=== PATIENT | male | born 1945 | race Caucasian/White ===

== ENCOUNTER 2017-02-19 19:40 | Observation (INO) | payer OTHER ==
--- NOTE | ~2017-02-19 | HP ---
History And Physical [address] [place]. [address] NAME: OMAR MAGAÑA : 41 STATUS : DIS Elsy PAT#: [id number] AGE: 71 ADM/REG DATE : 02/19/17 MR#: [id number] REPORT SERV DATE: 02/21/17 DICTATED BY: OMAR THOMAS DATE: 02/21/17 REPORT STATUS : Draft TRANSCRIBED BY: MODL DATE: 02/21/17 DATE OF ADMISSION: 02/19/2017 CHIEF COMPLAINT: Left hip pain. HISTORY: A 71-year-old male with left hip and groin pain of unclear etiology. He denies any particular history of injury. He is a very active gentleman, works for [employer]. ALLERGIES: NONE. MEDICATIONS: See chart. PAST MEDICAL HISTORY: Hearing loss, hypercholesterolemia, hypertension, coronary artery disease, COPD, arthritis. PAST SURGICAL HISTORY: Fractured skull surgery in 1963, diskectomy in 2000, diskectomy in 2003, back fusion in 2007. SOCIAL HISTORY: Half a pack a day cigarettes for fifty years. No alcohol or illicit drug use, infrequently drinking alcohol and is . Works for [employer] six hours at a time. FAMILY HISTORY: No known anesthetic complications. REVIEW OF SYSTEMS: No recent illnesses. Nothing other than what is noted above. No acute problems. Apparently admitted for "shock", but his systolic pressure was reported in the 80s here. PHYSICAL EXAMINATION: GENERAL: He is alert and oriented x3, in no apparent distress. He is able to stand up. HEENT: Atraumatic, normocephalic. NECK: Supple. EXTREMITIES: Both upper extremities, left lower extremity without acute trauma. Difficult to localize symptoms, he is able to walk with minimal discomfort. NEUROVASCULAR: Intact. Review of CT scan and x-rays reveals an anterior greater trochanteric fracture. ASSESSMENT: Anterior greater trochanteric fracture. I suspect it is an avulsion-type fracture. PLAN: I have discussed weightbearing as tolerated. Activity as tolerated. Protected weightbearing with a crutch or cane or a walker as needed. We discussed activity at length. We will follow up as an outpatient. History And Physical [address] [place]. [address] NAME: OMAR MAGAÑA : 41 STATUS : DIS Elsy PAT#: [id number] AGE: 71 ADM/REG DATE : 02/19/17 MR#: [id number] REPORT SERV DATE: 02/21/17 DICTATED BY: OMAR THOMAS DATE: 02/21/17 REPORT STATUS : Draft TRANSCRIBED BY: NIKO DATE: 02/21/17 WTB/NIKO Salome Thomas M.D. / [id number] CC: MD Ben Corea
--- NOTE | ~2017-02-19 | DS ---
Discharge Summary [facility] [address] [place]. [address] NAME: OMAR MAGAÑA : 41 STATUS : DIS Elsy PAT#: [id number] AGE: 71 ADM/REG DATE : 02/19/17 MR#: [id number] REPORT SERV DATE: 02/22/17 DICTATED BY: DMITRIY BURT DATE: 02/21/17 REPORT STATUS : Draft TRANSCRIBED BY: MODL DATE: 02/21/17 ADMISSION DATE: 02/19/2017 DISCHARGE DATE: 02/21/2017 DISCHARGE DIAGNOSES: 1. Left lower extremity pain due to small nondisplaced fracture, anterolateral left greater trochanter. 2. Small nondisplaced fracture, anterolateral left greater trochanter. 3. Hypotension, resolved. 4. Acute kidney injury, resolved. 5. Chronic obstructive pulmonary disease without exacerbation, stable. IMAGIN. Chest x-ray, 02/19/2017, impression: No acute process, no changes. 2. CT abdomen and pelvis on 02/20/2017, impression very small nondisplaced fracture of the anterolateral aspect of the left greater trochanter. Degenerative joint changes and hip, bilateral. LABORATORY DATA: WBC is 7.3, hemoglobin 12.9, hematocrit 38.4, platelet count 154. Sodium is 139, potassium is 4.4, chloride is 108, CO2 is 26, BUN is 23, creatinine is 1.22, glucose is 102, calcium is 8.3, magnesium is 2.1, total protein 6.7, albumin 3.4, globulin is 3.3, total bilirubin 0.4, alkaline phosphatase is 133, ALT is 16, AST is 14, BNP is 67.6, troponin is less than 0.02, and TSH is 0.632. COURSE IN HOSPITAL STAY: Please refer to history and physical dictated by Dr. Alberto Rendon on 02/20/2017 for complete admission details. This patient is a 71-year-old male, who presented to [facility] emergency room with complaints of low blood pressure and severe left leg and hip pain. The patient was evaluated. Imaging was obtained, which is noted above. Ortho was consulted regarding nondisplaced fracture of the anterior left toe greater trochanter. Per Dr. Thomas, the patient is nonsurgical at this time. Weightbearing as tolerated. Home health care and physical therapy have been ordered for the patient to follow up outpatient with Dr. Thomas in his primary care. Oxycodone 5/325 is controlling his pain. He will be provided a prescription for pain medication. The patient was noted with hypotension upon admission. Blood pressure medications were held. At this time, blood pressure has remained stable. We will continue to monitor home review with primary care. The patient was noted with BUN of 28 and creatinine of 1.66 upon admission. At this time, BUN is 23 and creatinine is 1.22. This has resolved. This patient is being discharged home in hemodynamically stable condition. We will have home health care and physical therapy evaluating. A walker will be provided. Weightbearing is as tolerated. We will follow up with Dr. Thomas in one to two weeks as well as primary care in 7-10 days. Prescription for oxycodone was provided. The patient will able to return to work on 03/17/2017, unless otherwise advised per primary care. Discharge Summary [address] [address] NAME: OMAR MAGAÑA : 41 STATUS : DIS Elsy PAT#: [id number] AGE: 71 ADM/REG DATE : 02/19/17 MR#: [id number] REPORT SERV DATE: 02/22/17 DICTATED BY: DMITRIY BURT DATE: 02/21/17 REPORT STATUS : Draft TRANSCRIBED BY: NIKO DATE: 02/21/17 DISCHARGE MEDICATIONS: 1. Aspirin 81 mg one p.o. every morning. 2. Plavix 75 mg one p.o. every morning. 3. Neurontin 400 mg one p.o. three times daily. 4. Fish oil 1000 mg p.o. every morning. 5. Zocor 20 mg one p.o. at bedtime. 6. Norvasc 10 mg one p.o. every morning. The patient to monitor. 7. Flexeril 5 mg one p.o. three times daily p.r.n. for . 8. Ranexa 500 mg p.o. twice daily. 9. Uroxatral 10 mg one p.o. at bedtime. 10.Lisinopril 20 mg one p.o. every morning, currently holding. 11.Magnesium 500 mg one p.o. every morning. 12.Zantac 150 mg one p.o. twice daily. 13.Ultram 50 mg one p.o. every six hours, hold for sedation. 14.Trazodone 50 mg one p.o. at bedtime. 15.Requip 1 mg one p.o. at bedtime p.r.n. for sleep-time restless legs. 16.Nitroglycerin 0.4 mg sublingual p.r.n. for chest pain. 17.Oxycodone 5/325 one p.o. every six hours p.r.n. for pain. This discharge took greater than 30 minutes. DICTATED BY: Dmitriy Burt NP [facility]/MODL Dmitriy Burt NP / [id number] CC: MD ALYSA Corea RAMI
--- NOTE | ~2017-02-19 | HP ---
History And Physical [facility] [address] [place]. [address] NAME: OMAR MAGAÑA : 41 STATUS : ADM Elsy PAT#: [id number] AGE: 71 ADM/REG DATE : 02/19/17 MR#: [id number] REPORT SERV DATE: 02/20/17 DICTATED BY: ANDREW MOORE DATE: 02/20/17 REPORT STATUS : Draft TRANSCRIBED BY: MODL DATE: 02/20/17 DATE OF ADMISSION: 02/19/2017 CHIEF COMPLAINT: A 71-year-old male presenting with low blood pressure and severe left leg and hip pain. HISTORY OF PRESENT ILLNESS: The patient's history was obtained through careful interview with the patient, coupled with review of [facility] medical records. For about two weeks, the patient has a primary complaint of left leg pain. This is new onset, mostly in his groin and then radiates down just below the knee. It is about 8/10 in severity, exacerbated by weightbearing and is constant. It has gotten to the point he says in the last two or three days where he cannot even walk. Over the last two weeks, he has lost about 10 pounds and has just felt generally debilitated. He describes a poor appetite, but no nausea, vomiting, and he has also been checking his blood pressures, and they have been persistently and consistently low over these last two weeks, but despite this, he denies any lightheadedness. No nausea, vomiting. No diarrhea. No shortness of breath. No chest pain. No rash. No change in bowel or bladder habit. REVIEW OF SYSTEMS: Otherwise, a 14-point review of systems was obtained and was negative. PAST MEDICAL HISTORY: 1. Coronary artery disease, status post stent placement, followed by [facility]. 2. Gastroesophageal reflux disorder, seen by Dr. Polanco. 3. Hypertension. 4. Restless legs syndrome. 5. COPD. PAST SURGICAL HISTORY: 1. Back surgery x3. 2. Neck surgery with a benign mass in the . 3. Right shoulder surgery. 4. Skull fracture with apparent repair in the . ALLERGIES: NO KNOWN DRUG ALLERGIES. SOCIAL HISTORY: Smokes about two packs per day. Rare alcohol use. He is a of the [employer]. Retired from [employer]. He is . Lives in [place], [place]. 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 He has children, who live locally. History And Physical [address] [address] NAME: OMAR MAGAÑA : 41 STATUS : ADM Elsy PAT#: [id number] AGE: 71 ADM/REG DATE : 02/19/17 MR#: [id number] REPORT SERV DATE: 02/20/17 DICTATED BY: ANDREW MOORE DATE: 02/20/17 REPORT STATUS : Draft TRANSCRIBED BY: NIKO DATE: 02/20/17 FAMILY HISTORY: Brother with coronary artery disease. A strong family history of COPD. CURRENT MEDICATIONS: Include metoprolol 25 mg p.o. b.i.d., nitroglycerin, fish oil, Zantac, Ranexa 500 mg p.o. b.i.d., Requip 1 mg at bedtime, Zocor 20 mg p.o. daily, tramadol p.r.n., trazodone 50 mg at bedtime, magnesium supplement, Alfuzosin 10 mg p.o. at bedtime, Norvasc 10 mg p.o. daily, aspirin 81 mg p.o. daily, Plavix 75 mg p.o. daily, Flexeril 5 mg p.o. t.i.d., Neurontin 400 mg p.o. t.i.d., isosorbide mononitrate 60 mg p.o. daily, and lisinopril 20 mg p.o. daily. PHYSICAL EXAMINATION: VITAL SIGNS: Temperature 98.7, pulse 87, blood pressure 84/46, respiratory rate 16, and O2 saturation 93% on room air. GENERAL: A pleasant, cooperative male, in minimal distress secondary to left leg and hip pain. HEENT: Pupils equal, round, and reactive to light. No conjunctival pallor. No scleral icterus. Nares are patent. Oropharynx is clear of obstruction. The patient has dry mucous membranes. NECK: Trachea midline. No thyromegaly. LYMPH: No cervical lymphadenopathy. No supraclavicular lymphadenopathy. RESPIRATORY: Clear to auscultation at bases. No wheezes, rales, or rhonchi. Normal respiratory effort. CARDIOVASCULAR: Regular rate and rhythm. No murmurs, rubs, or gallops. No extremity edema is appreciated. ABDOMEN: Soft, nontender, nondistended. Normal bowel sounds auscultated throughout. No hepatosplenomegaly. DERMATOLOGICAL: Warm and dry extremities. No pallor, no cyanosis. PSYCHIATRIC: Normal affect. Good mood. Alert and oriented x3. LABORATORY DATA: White blood cell count 6.8, hemoglobin 13, hematocrit 38, platelets 154. Sodium 139, potassium 3.9, chloride 105, bicarb 26, BUN 28, creatinine 1.66 from baseline creatinine of 0.9, glucose 97. Brain natriuretic peptide 23, troponin negative. INR 1.1. Liver enzymes within normal limits. STUDIES: 1. Chest x-ray by my own evaluation shows chronic COPD changes, but no acute abnormality. 2. EKG by my own evaluation shows sinus rhythm. ASSESSMENT AND PLAN: 1. Hypertension. Placed on IV fluids. Hold the patient's home blood pressure medications and monitor. 2. Acute kidney injury. Placed on IV fluids and monitor. 3. Left groin pain radiating down the left leg. Check a CT scan of the hip and pelvis on the morning of February 20. 4. Chronic obstructive pulmonary disease. Counseled tobacco abstinence. Placed on DuoNeb nebulizers. History And Physical [address] [address] NAME: OMAR MAGAÑA : 41 STATUS : ADM Elsy PAT#: [id number] AGE: 71 ADM/REG DATE : 02/19/17 MR#: [id number] REPORT SERV DATE: 02/20/17 DICTATED BY: ANDREW MOORE DATE: 02/20/17 REPORT STATUS : Draft TRANSCRIBED BY: NIKO DATE: 02/20/17 [facility]/NIKO Andrew Moore M.D. / [id number] CC: Rey Hernandez M.D.
[2017-02-19 19:32] LABS: BASOPHILS 0.3 %; BASOPHILS ABSOLUTE 0.02 10/3/uL (0.0-0.16); EOSINOPHILS 2.8 %; EOSINOPHILS ABSOLUTE 0.19 10/3/uL (0.0-0.53); ER CBC TAT 0 Hrs 16 Mins; HEMOGLOBIN 12.7 g/dL (13.6-17.8); IMMATURE GRANULOCYTES 0.4 %; IMMATURE GRANULOCYTES ABSOLUTE 0.03 10/3/uL (0.0-0.11); LYMPHOCYTES ABSOLUTE 2.38 10/3/uL (0.67-4.30); MEAN CORPUS HGB CONC 33.8 g/dL (32.0-36.0); MEAN CORPUSCULAR HEMOGLOB 28.8 pg (26.0-34.0); MEAN CORPUSCULAR VOLUME 85.3 fL (80-100); MEAN PLATELET VOLUME 9.9 fL (9.2-13.0); MONOCYTES 10.3 %; NEUTROPHILS 51.2 %; NEUTROPHILS ABSOLUTE 3.48 10/3/uL (2.02-8.40); PLATELET COUNT 154 10/3/uL (150-400); RBC DISTRIBUTION WIDTH 13.7 % (12.0-16.0); RED CELL COUNT 4.41 10/6/uL (4.7-6.1); WHITE BLOOD CELLS 6.8 10/3/uL (4.5-10.5)
[2017-02-19 19:33] LABS: HEMATOCRIT 37.6 % (40.0-51.0); MANUAL DIFF NO %
[2017-02-19 19:36] LABS: INTERNATIONAL NORMAL RATI 1.1 UNITS (-); PARTIAL THROMBO TIME 28.6 SEC (22.5-37.2); PROTIME (NOT ORD) 14.4 SEC (12.0-14.5)
[~2017-02-19 19:40] MED LIST: AMB10 PO; AMBIEN CR12.5 MG PO; ASAB PO; FLEX PO; LIPITOR10 PO; LORTAB 5 PO; TICLID 250 MG250 MG PO; ZANTAC150 MG PO; ZESTRIL20 MG PO
[2017-02-19 19:48] LABS: CALCIUM, SERUM 8.4 MG/DL (8.5-10.4); CHLORIDE, SERUM 105 MMOL/L (96-112); CO2 (CARBON DIOXIDE) 26 MMOL/L (24-34); DIRECT BILIRUBIN 0.1 MG/DL (0.0-0.4); GLUCOSE, SERUM 97 MG/DL (60-99); INDIRECT BILIRUBIN(NOT ORDER) 0.7 MG/DL (0.1-0.9); SGOT(AST) 14 U/L (5-40); SGPT(ALT) 15 U/L (5-65); SODIUM, SERUM 139 MMOL/L (135-148); TOTAL BILIRUBIN 0.8 MG/DL (0-1.2); TOTAL PROTEIN 6.8 G/DL (6.0-8.5); TROPONIN I <0.02 NG/ML (<0.05)
[2017-02-19 19:49] LABS: ALBUMIN 3.5 G/DL (3.5-5.0); ALKALINE PHOSPHATASE 138 U/L (45-117); BUN (BLOOD UREA NITROGEN) 28 MG/DL (6-23); CHEST PAIN PROFILE TAT 0 Hrs 32 Mins; CREATININE 1.66 MG/DL (0.70-1.30); GFR AFRICAN AMERICAN 47 ML/MIN (>=60); GFR NON AFRICAN AMERICAN 40 ML/MIN (>=60); POTASSIUM, SERUM 3.9 MMOL/L (3.5-5.3)
[2017-02-19] MEDS ORDERED: NORV10 PO (22:40)
[2017-02-19] MEDS ORDERED: ASAB PO (22:40)
[2017-02-19] MEDS ORDERED: IMDUR60 PO (22:41)
[2017-02-19] MEDS ORDERED: FISH-EPA1000 MG PO (22:41)
[2017-02-19] MEDS ORDERED: FLEXERIL5 MG PO (22:41)
[2017-02-19] MEDS ORDERED: NEUR400 PO (22:41)
[2017-02-19] MEDS ORDERED: MAGNESIUM 500MG PO (22:42)
[2017-02-19] MEDS ORDERED: PRIN20 PO (22:42)
[2017-02-19] MEDS ORDERED: LOP25 PO (22:42)
[2017-02-19] MEDS ORDERED: RAN500 PO (22:43)
[2017-02-19] MEDS ORDERED: PLAVIX PO (22:43)
[2017-02-19] MEDS ORDERED: ZANTAC 150 PO (22:43)
[2017-02-19] MEDS ORDERED: ZOCOR20 PO (22:43)
[2017-02-19] MEDS ORDERED: TRAZ50 PO (22:44)
[2017-02-19] MEDS ORDERED: ULTRAM50 PO (22:44)
[2017-02-19] MEDS ORDERED: REQUIP1 PO (22:45)
[2017-02-19] MEDS ORDERED: UROXATRAL PO (22:46)
[2017-02-19] MEDS ORDERED: NITROSTAT0.4 MG SL (22:47)
[2017-02-20 04:07] LABS: BASOPHILS 0.3 %; BASOPHILS ABSOLUTE 0.02 10/3/uL (0.0-0.16); EOSINOPHILS 2.5 %; EOSINOPHILS ABSOLUTE 0.18 10/3/uL (0.0-0.53); HEMATOCRIT 38.4 % (40.0-51.0); HEMOGLOBIN 12.9 g/dL (13.6-17.8); IMMATURE GRANULOCYTES 0.3 %; IMMATURE GRANULOCYTES ABSOLUTE 0.02 10/3/uL (0.0-0.11); LYMPHOCYTES 28.1 %; LYMPHOCYTES ABSOLUTE 2.05 10/3/uL (0.67-4.30); MEAN CORPUS HGB CONC 33.6 g/dL (32.0-36.0); MEAN CORPUSCULAR HEMOGLOB 28.4 pg (26.0-34.0); MEAN CORPUSCULAR VOLUME 84.6 fL (80-100); MEAN PLATELET VOLUME 10.3 fL (9.2-13.0); MONOCYTES 13.2 %; MONOCYTES ABSOLUTE 0.96 10/3/uL (0.21-1.20); NEUTROPHILS 55.6 %; NEUTROPHILS ABSOLUTE 4.06 10/3/uL (2.02-8.40); PLATELET COUNT 154 10/3/uL (150-400); RBC DISTRIBUTION WIDTH 13.6 % (12.0-16.0); RED CELL COUNT 4.54 10/6/uL (4.7-6.1); WHITE BLOOD CELLS 7.3 10/3/uL (4.5-10.5)
[2017-02-20 04:10] LABS: MANUAL DIFF NO %
[2017-02-20 04:23] LABS: INTERNATIONAL NORMAL RATI 1.1 UNITS (-); PARTIAL THROMBO TIME 29.6 SEC (22.5-37.2); PROTIME (NOT ORD) 14.3 SEC (12.0-14.5)
[2017-02-20 04:30] LABS: ALBUMIN 3.4 G/DL (3.5-5.0); ALKALINE PHOSPHATASE 133 U/L (45-117); BUN (BLOOD UREA NITROGEN) 23 MG/DL (6-23); CALCIUM, SERUM 8.3 MG/DL (8.5-10.4); CHLORIDE, SERUM 108 MMOL/L (96-112); CO2 (CARBON DIOXIDE) 26 MMOL/L (24-34); CREATININE 1.22 MG/DL (0.70-1.30); GFR AFRICAN AMERICAN 68 ML/MIN (>=60); GFR NON AFRICAN AMERICAN 58 ML/MIN (>=60); GLOBULIN 3.3 G/DL (2.5-4.1); GLUCOSE, SERUM 102 MG/DL (60-99); POTASSIUM, SERUM 4.4 MMOL/L (3.5-5.3); SGOT(AST) 14 U/L (5-40); SGPT(ALT) 16 U/L (5-65); SODIUM, SERUM 139 MMOL/L (135-148); TOTAL BILIRUBIN 0.4 MG/DL (0-1.2); TOTAL PROTEIN 6.7 G/DL (6.0-8.5); TROPONIN I <0.02 NG/ML (<0.05); ULTRASENSITIVE TSH 0.632 MCIU/ML (0.358-3.740)
[2017-02-21] MEDS ORDERED: PCET PO (12:29)
[2017-05-21] MEDS ORDERED: UROXATRAL PO (14:18)
== END 2017-02-21 12:59 | disposition home or self-care (01) ==
LOC: ER 19:40 → CDU1 21:44
PROVIDERS: Emergency Medicine; Internal Medicine
DX: S72.115A Nondisplaced fracture of greater trochanter of left femur, initial encounter for closed fracture (principal); I25.10 Atherosclerotic heart disease of native coronary artery without angina pectoris; I10 Essential (primary) hypertension; E78.00 Pure hypercholesterolemia, unspecified; J44.9 Chronic obstructive pulmonary disease, unspecified; M19.90 Unspecified osteoarthritis, unspecified site; H91.90 Unspecified hearing loss, unspecified ear; F17.210 Nicotine dependence, cigarettes, uncomplicated; K21.9 Gastro-esophageal reflux disease without esophagitis; G25.81 Restless legs syndrome; N17.9 Acute kidney failure, unspecified; Z98.1 Arthrodesis status; Z82.49 Family history of ischemic heart disease and other diseases of the circulatory system; Z83.6 Family history of other diseases of the respiratory system; Z79.82 Long term (current) use of aspirin; Z79.02 Long term (current) use of antithrombotics/antiplatelets; Z79.891 Long term (current) use of opiate analgesic; Z79.899 Other long term (current) drug therapy; Z98.890 Other specified postprocedural states
CPT/HCPCS: 71010; 72192; 73700-LT; 80048; 80053; 80076; 83735; 83880; 84443; 84484; 85025; 85610; 85730; 93005; 94640; 97161-GP; 99291; A9270-GY; G0378; G8978-CK-GP; G8979-CI-GP

== ENCOUNTER 2017-02-24 17:58 | Emergency (ER) | payer OTHER ==
[~2017-02-24 17:58] MED LIST changes: +FISH-EPA1000 MG PO; +FLEXERIL5 MG PO; +IMDUR60 PO; +LOP25 PO; +MAGNESIUM 500MG PO; +NEUR400 PO; +NITROSTAT0.4 MG SL; +NORV10 PO; +PCET PO; +PLAVIX PO; +PRIN20 PO; +RAN500 PO; +REQUIP1 PO; +TRAZ50 PO; +ULTRAM50 PO; +UROXATRAL PO; +ZANTAC 150 PO; +ZOCOR20 PO
[2017-02-24 18:41] LABS: BASOPHILS 0.3 %; BASOPHILS ABSOLUTE 0.02 10/3/uL (0.0-0.16); EOSINOPHILS 2.3 %; EOSINOPHILS ABSOLUTE 0.17 10/3/uL (0.0-0.53); ER CBC TAT 0 Hrs 05 Mins; HEMATOCRIT 38.9 % (40.0-51.0); HEMOGLOBIN 13.1 g/dL (13.6-17.8); IMMATURE GRANULOCYTES 0.3 %; IMMATURE GRANULOCYTES ABSOLUTE 0.02 10/3/uL (0.0-0.11); LYMPHOCYTES 35.7 %; LYMPHOCYTES ABSOLUTE 2.65 10/3/uL (0.67-4.30); MANUAL DIFF NO %; MEAN CORPUS HGB CONC 33.7 g/dL (32.0-36.0); MEAN CORPUSCULAR HEMOGLOB 28.7 pg (26.0-34.0); MEAN CORPUSCULAR VOLUME 85.3 fL (80-100); MEAN PLATELET VOLUME 10.4 fL (9.2-13.0); MONOCYTES 10.8 %; NEUTROPHILS 50.6 %; NEUTROPHILS ABSOLUTE 3.77 10/3/uL (2.02-8.40); PLATELET COUNT 180 10/3/uL (150-400); RBC DISTRIBUTION WIDTH 13.6 % (12.0-16.0); RED CELL COUNT 4.56 10/6/uL (4.7-6.1); WHITE BLOOD CELLS 7.4 10/3/uL (4.5-10.5)
[2017-02-24 18:52] LABS: INTERNATIONAL NORMAL RATI 1.1 UNITS (-); PARTIAL THROMBO TIME 28.8 SEC (22.5-37.2); PROTIME (NOT ORD) 13.7 SEC (12.0-14.5)
[2017-02-24 19:01] LABS: BUN (BLOOD UREA NITROGEN) 23 MG/DL (6-23); CALCIUM, SERUM 8.7 MG/DL (8.5-10.4); CHEST PAIN PROFILE TAT 0 Hrs 25 Mins; CHLORIDE, SERUM 105 MMOL/L (96-112); CO2 (CARBON DIOXIDE) 27 MMOL/L (24-34); CREATININE 1.11 MG/DL (0.70-1.30); GFR AFRICAN AMERICAN 76 ML/MIN (>=60); GFR NON AFRICAN AMERICAN 66 ML/MIN (>=60); GLUCOSE, SERUM 67 MG/DL (60-99); POTASSIUM, SERUM 4.4 MMOL/L (3.5-5.3); SODIUM, SERUM 138 MMOL/L (135-148); TROPONIN I <0.02 NG/ML (<0.05)
[2017-05-21] MEDS ORDERED: UROXATRAL PO (14:18)
== END 2017-02-24 21:53 | disposition home or self-care (01) ==
LOC: ER 17:58
PROVIDERS: Hospitalist
DX: I95.9 Hypotension, unspecified (principal); J44.9 Chronic obstructive pulmonary disease, unspecified; I11.0 Hypertensive heart disease with heart failure; I50.9 Heart failure, unspecified; I25.10 Atherosclerotic heart disease of native coronary artery without angina pectoris; K21.9 Gastro-esophageal reflux disease without esophagitis; F17.200 Nicotine dependence, unspecified, uncomplicated; Z95.5 Presence of coronary angioplasty implant and graft; Z79.82 Long term (current) use of aspirin; Z79.02 Long term (current) use of antithrombotics/antiplatelets; Z79.899 Other long term (current) drug therapy
CPT/HCPCS: 71020; 80048; 83735; 84484; 85025; 85610; 85730; 93005; 99285

== ENCOUNTER 2017-05-25 06:30 | Inpatient (IN) | payer OTHER ==
[2017-05-18 16:51] LABS: WBC (NOT ORDERED) (RFLEX) 0 (0-5)
[2017-05-18 17:19] LABS: BASOPHILS 0.4 %; BASOPHILS ABSOLUTE 0.03 10/3/uL (0.0-0.16); EOSINOPHILS 1.9 %; EOSINOPHILS ABSOLUTE 0.14 10/3/uL (0.0-0.53); HEMATOCRIT 39.1 % (40.0-51.0); HEMOGLOBIN 13.3 g/dL (13.6-17.8); IMMATURE GRANULOCYTES 0.3 %; IMMATURE GRANULOCYTES ABSOLUTE 0.02 10/3/uL (0.0-0.11); LYMPHOCYTES 29.6 %; LYMPHOCYTES ABSOLUTE 2.21 10/3/uL (0.67-4.30); MANUAL DIFF NO %; MEAN CORPUSCULAR HEMOGLOB 29.5 pg (26.0-34.0); MEAN CORPUSCULAR VOLUME 86.7 fL (80-100); MEAN PLATELET VOLUME 10.1 fL (9.2-13.0); MONOCYTES 11.5 %; MONOCYTES ABSOLUTE 0.86 10/3/uL (0.21-1.20); NEUTROPHILS 56.3 %; PLATELET COUNT 176 10/3/uL (150-400); RBC DISTRIBUTION WIDTH 14.2 % (12.0-16.0); RED CELL COUNT 4.51 10/6/uL (4.7-6.1); WHITE BLOOD CELLS 7.5 10/3/uL (4.5-10.5)
[2017-05-18 17:21] LABS: INTERNATIONAL NORMAL RATI 1.1 UNITS (-); PROTIME (NOT ORD) 13.7 SEC (12.0-14.5)
[2017-05-18 17:35] LABS: A/G RATIO 1.1 (0.7-1.9); ALBUMIN 3.6 G/DL (3.5-5.0); CHLORIDE, SERUM 106 MMOL/L (96-112); CO2 (CARBON DIOXIDE) 28 MMOL/L (24-34); CREATININE 1.04 MG/DL (0.70-1.30); GFR AFRICAN AMERICAN 82 ML/MIN (>=60); GFR NON AFRICAN AMERICAN 71 ML/MIN (>=60); GLOBULIN 3.2 G/DL (2.5-4.1); POTASSIUM, SERUM 4.2 MMOL/L (3.5-5.3); SGOT(AST) 16 U/L (5-40); SGPT(ALT) 16 U/L (5-65); SODIUM, SERUM 140 MMOL/L (135-148); TOTAL BILIRUBIN 0.4 MG/DL (0-1.2); TOTAL PROTEIN 6.8 G/DL (6.0-8.5)
[2017-05-18 17:36] LABS: ALKALINE PHOSPHATASE 109 U/L (45-117); BUN (BLOOD UREA NITROGEN) 16 MG/DL (6-23); GLUCOSE, SERUM 99 MG/DL (60-99)
[2017-05-18 20:30] LABS: ASCORBIC ACID (UR NOT ORDER) 20 (NEG); BILIRUBIN, URINE SMALL (NEG); KETONE, URINE TRACE MG/DL (NEG); LEUKOCYTE ESTERASE(NOT OR NEG (NEG)
[~2017-05-25] VITALS: Ht 175.3 cm; Wt 83.2 kg
--- NOTE | ~2017-05-25 | OP ---
Record Of Operation [facility] [address] [place]. [address] NAME: OMAR MAGAÑA : 41 STATUS : ADM IN PAT#: [id number] AGE: 71 ADM/REG DATE : 05/25/17 MR#: [id number] REPORT SERV DATE: 05/25/17 DICTATED BY: OMAR LUNA DATE: 05/25/17 REPORT STATUS : Draft TRANSCRIBED BY: MODL DATE: 05/25/17 DATE OF PROCEDURE: 05/25/2017 PREOPERATIVE DIAGNOSIS: Severe left hip degenerative joint disease. POSTOPERATIVE DIAGNOSIS: Severe left hip degenerative joint disease. PROCEDURE: Uncemented total hip arthroplasty, Tri-Lock. SIDE: Left. ELECTION CLERK: ANESTHESIA: See chart. SIZE: See chart. ESTIMATED BLOOD LOSS: About 100 mL. INDICATIONS FOR SURGERY: PROCEDURE: The patient was taken to the operating room and placed supine on the table without incident. Anesthetic was induced per the anesthesiologist. A May catheter was placed by the nurse in the standard sterile technique. The correct side for the procedure was identified by preoperative markings and matched with the consent form. All personnel in the room were in agreement regarding the procedure, patient, and side. The patient was then carefully positioned and carefully padded and prepped and draped in the normal sterile fashion. The patient received prophylactic preoperative antibiotics at the appropriate time. The preoperative x-ray was brought up on the monitor. Again, this was reviewed with the staff in the room. According with the preoperative plan, and angled, an anterolateral incision was made centered over the trochanter extending from proximal posterior to distal anterior. Electrocautery was used to maintain meticulous hemostasis. The IT band was split in line with its fibers. A Charnley retractor was placed over saline moistened laps. A standard anterolateral approach to the hip was carried out dissecting in line with the vastus medialis fibers lifting the inferior 20% of the vastus medialis, proximally the interior 20% of the gluteus medius and gluteus minimus tendons off the anterior capsule. Periosteal elevator was used to elevate soft tissue gently directly off the proximal anterior femoral bone. Appropriate retractors were carefully placed. Complete anterior capsulectomy was performed. The hip was then carefully dislocated with a combination of traction maneuver by the health assistant and scooping the ball out of the socket with a Hohmann. A femoral neck osteotomy was marked according to what had been preoperatively planned with a broach as a template. The distance for the femoral neck osteotomy was measured with a ruler. A femoral neck osteotomy was made with an oscillating saw under appropriate retraction. Meticulous hemostasis was again obtained. The leg was then brought up out of the anterior bag and Record Of Operation [facility] [id number] [place]. [address] NAME: OMAR MAGAÑA : 41 STATUS : ADM IN PAT#: [id number] AGE: 71 ADM/REG DATE : 05/25/17 MR#: [id number] REPORT SERV DATE: 05/25/17 DICTATED BY: OMAR LUNA DATE: 05/25/17 REPORT STATUS : Draft TRANSCRIBED BY: NIKO DATE: 05/25/17 positioned with the lower extremity in external rotation and slight flexion. Acetabular retractors were placed carefully palpating to be sure that they were directly on the bone. The acetabular labrum was excised with electrocautery and rongeur. Pulvinar fat was removed with a large curette and rongeur and again meticulous hemostasis was obtained. Sequential reamers were used in the acetabulum to 1 mm. less than the final size which was chosen. This was felt to give excellent interference fit. The acetabular fossa was then copiously irrigated with pulsatile lavage and actual acetabular component was placed and impacted and checked to make sure it was down snug. The overall alignment was checked. The acetabular steel box toe inserter was then removed. Screws were placed in the standard fashion. A drill, depth gauge and self tapping screw placement taking care not to plunge as the drill holes were carefully placed. A trial liner was then placed and attention directed back to the proximal femur. The leg was placed back into the anterior bag. The proximal femur was prepared using a box chisel following by a T-handled reamer to determine the intramedullary alignment. This was followed by sequential broaches up to the final broach. Once it was seated in the appropriate position, a Calcar reamer was used to plane the proximal femur. Trial reduction was then done with a trial prosthetic ball and neck. A straight edge was used to compare the tip of the trochanter to center of the ball relationship to what had been noted on the preoperative x-ray. Careful reduction was then done of the total hip. Palpation was done to ascertain and compare leg lengths by palpating the nonoperative leg and also by checking soft tissue tension. The stability of the hip was checked in full extension with full external rotation and in full flexion with adduction, flexion and internal rotation. The hip was then redislocated with a bone hook. The femoral trial and femoral broach were removed. The acetabulum was then prepared under appropriate retraction by removing the trial liner. A central hole eliminator was placed and tightened. The shell was irrigated out. The actual insert was placed and impacted and then checked to be sure it was down snug with a joker. The leg was again positioned in the bag. The proximal femur exposed, irrigated and the actual thermal prosthesis was taken from the medical claims representative and impacted. Once it was down, the trunnion was cleansed with a wet and dry lap and the prosthetic thermal head was placed and impacted and checked to be sure it was down snug. The acetabulum was irrigated and reduction was obtained. Again, we checked soft tissue tension, leg length and stability as described above. The hip was closed in a layered fashion with a 5 mm. Mersilene tape placed through a single drill hole in the proximal anterior/superior trochanter reattaching the gluteus medius and minimus fibers. The vastus lateralis, gluteus medius, and gluteus minimus were then closed in a sleeve. Drain was placed between the vastus and the IT band exiting distally anteriorly. The IT band was closed. Subcutaneous closure and skin closure were then obtained. A sterile dressing was applied. The patient was carefully positioned into a supine position and then awakened. The patient was then carefully transferred to the stretcher to be returned to the postoperative care unit without incident. COMPLICATION: None. SPECIMENS: Left femoral head. Record Of Operation [facility] [id number] [facility] [place]. [address] NAME: ARCHANAOMAR Victor MAE : 41 STATUS : ADM IN [facility]#: [id number] AGE: 71 ADM/REG DATE : 05/25/17 MR#: [id number] REPORT SERV DATE: 05/25/17 DICTATED BY: OMAR LUNA DATE: 05/25/17 REPORT STATUS : Draft TRANSCRIBED BY: MODDaron DATE: 05/25/17 WTB/MODL Salome Luna M.D. / [id number] CC: Shamika Salgado M.D.
[2017-05-26 05:42] LABS: HEMATOCRIT 28.9 % (40.0-51.0); HEMOGLOBIN 9.8 g/dL (13.6-17.8)
[2017-05-26 05:49] LABS: INTERNATIONAL NORMAL RATI 1.2 UNITS (-); PROTIME (NOT ORD) 15.1 SEC (12.0-14.5)
[2017-05-26 05:52] LABS: BUN (BLOOD UREA NITROGEN) 17 MG/DL (6-23); CALCIUM, SERUM 8.2 MG/DL (8.5-10.4); CHLORIDE, SERUM 105 MMOL/L (96-112); CO2 (CARBON DIOXIDE) 28 MMOL/L (24-34); CREATININE 1.08 MG/DL (0.70-1.30); GFR AFRICAN AMERICAN 78 ML/MIN (>=60); GFR NON AFRICAN AMERICAN 68 ML/MIN (>=60); POTASSIUM, SERUM 4.4 MMOL/L (3.5-5.3); SODIUM, SERUM 138 MMOL/L (135-148)
[2017-05-26 05:53] LABS: GLUCOSE, SERUM 174 MG/DL (60-99)
[2017-05-26] MEDS ORDERED: NORCO1 TA2 PO (14:43)
[2017-05-26] MEDS ORDERED: C5 (14:43)
== END 2017-05-26 16:43 | disposition home or self-care (01) | DRG 470 ==
LOC: ENRESERVDT → ENRESERVTM → ENRESERV → SDC/OF 06:44 → 3SO 06:44 → PACU 12:16 → 3SO 13:56
PROVIDERS: Specialist
PROC: 0SRB0JA Replacement of Left Hip Joint with Synthetic Substitute, Uncemented, Open Approach (ICD-10-PCS; principal; 2017-05-25 09:15)
DX: M17.12 Unilateral primary osteoarthritis, left knee (principal); G62.9 Polyneuropathy, unspecified; J44.9 Chronic obstructive pulmonary disease, unspecified; I10 Essential (primary) hypertension; I25.10 Atherosclerotic heart disease of native coronary artery without angina pectoris; F17.210 Nicotine dependence, cigarettes, uncomplicated; M16.12 Unilateral primary osteoarthritis, left hip; K21.9 Gastro-esophageal reflux disease without esophagitis; E78.5 Hyperlipidemia, unspecified; N40.0 Benign prostatic hyperplasia without lower urinary tract symptoms; Z95.5 Presence of coronary angioplasty implant and graft; I25.2 Old myocardial infarction; Z79.899 Other long term (current) drug therapy
CPT/HCPCS: 36415; 71020; 72170; 80048; 80053; 81001; 85014; 85018; 85025; 85610; 86850; 86900; 86901; 87641; 88304; 88311; 93005; 94640; 97110-GP; 97116-GP; 97161-GP; 97166-GO; A9270-GY; C1713; C1776; J0690; J1885; J2270; J2370; J2405; J2710; J2795; J3010; P9045